=== PATIENT | female | born 1955 | race Two or more races ===

== ENCOUNTER 2016-07-13 15:20 | Emergency (ER) | payer OTHER ==
[~2016-07-13] VITALS: Ht 154.9 cm; Wt 78.0 kg
[2016-07-13 15:30] VITALS: BP 134/71
[2016-07-13] MEDS ORDERED: BACITRACIN TOP OINT 1 UD PKG TOP ONE (15:45)
[2016-07-13] MEDS ORDERED: OXYMETAZOLINE HCL 0.05 % NASAL SPRAY 15ML ONE (17:00)
== END 2016-07-13 17:24 | disposition home or self-care (01) ==
LOC: ER 15:21
DX: R04.0 Epistaxis (principal)

== ENCOUNTER 2016-07-19 21:58 | Emergency (ER) | payer OTHER ==
[~2016-07-19] VITALS: Ht 162.6 cm; Wt 81.6 kg
[2016-07-19 23:58] LABS: Basophils # (auto) 0 uL; Basophils % (auto) 0.4 % (0.0-2.0); Eosinophils # (auto) 0.1 uL; Eosinophils % (auto) 1.7 % (0.0-7.0); Hematocrit 35.7 % (36.0-46.0); Lymphocytes % (auto) 35.6 % (10.0-50.0); Mean Corpuscular Hgb Conc. 33.8 g/dL (32.0-36.0); Mean Corpuscular Volume 94.8 fL (80.0-100.0); Mean Platelet Volume 9.1 fL (7.4-10.4); Monocytes # (auto) 0.5 uL; Monocytes % (auto) 8.2 % (0.0-12.0); Neutrophils % (auto) 54.1 % (37.0-80.0); Platelet Count (auto) 280 10^3/uL (140-450); Red Cell Distribution Width 13.4 % (11.6-16.0); White Blood Cell 5.5 10^3/uL (4.4-10.8)
[2016-07-20 00:23] LABS: INR 0.97 (0.9-1.15); Partial Thromboplastin Time 25.3 sec (22.64-33.71); Prothrombin Time 10.5 sec (9.37-12.3)
[2016-07-20 00:57] VITALS: BP 140/81
== END 2016-07-20 01:44 | disposition home or self-care (01) ==
LOC: ER 22:18
DX: R04.0 Epistaxis (principal)
CPT/HCPCS: 36415; 85025; 85610; 85730